=== PATIENT | female | born 1980 ===

== ENCOUNTER → 2017-01-16 | Day surgery (SDC) | payer BC ==
--- NOTE | ~2017-01-16 | OR ---
Unit #: [id number] #: [id number] Patient: AUBRIE AUSTIN [id number] [address] [address] [id number] MR#: [id number] NAME: AUBRIE AUSTIN ROOM: Date of Procedure: 01/16/2017 Admission Date: 01/16/2017 Surgeon: Camacho Lindquist Jr., M.D. : 1980 Attending Physician: Camacho Lindquist Jr., M.D. OPERATIVE REPORT INDICATIONS FOR PROCEDURE The patient is a 36-year-old female, who recently presented to the office complaining of intermittent mid epigastric and right upper quadrant abdominal pain. She has been worked up. Ultrasound revealed no obvious stones, but CCK HIDA scan revealed basically no contraction of the gallbladder, but probably no obstruction of the cystic duct. It was felt that the patient should have a laparoscopic cholecystectomy. She is brought to the operating room at this time for this procedure. She understands the procedure including the risks, including that of common duct injury, biliary leak, and bleeding, and intra-abdominal organ injury, and consents. PREOPERATIVE DIAGNOSIS Chronic cholecystitis. POSTOPERATIVE DIAGNOSIS Chronic cholecystitis, noting a chronically inflamed gallbladder. ANESTHESIA General with endotracheal intubation and 0.5% Marcaine with epinephrine locally in the port sites. PROCEDURE PERFORMED Laparoscopic cholecystectomy. DESCRIPTION OF PROCEDURE The patient was positioned in supine position. After being anesthetized and intubated, she was prepped and draped in routine fashion for laparoscopic cholecystectomy. A small supraumbilical incision made approximately 0.5 cm in length. This was carried down to the fascia. The umbilicus and fascia were lifted with a towel clip, and a Veress needle introduced into the abdomen. The abdomen was then inflated with CO2 gas. A 5-mm port was introduced into the abdomen followed by the camera. There was no evidence of any injury related to introduction of the port of the Veress needle. Brief intra-abdominal exploration was carried out. The patient was noted to have a slightly enlarged uterus, felt probably be normal and a chronically inflamed gallbladder. Two 5-mm ports were placed laterally and an 11-mm port just to the right of the upper midline. The gallbladder was lifted. Dissection was carried out in the triangle of Calot, cystic duct which was approximately 1 to 2 mm in diameter was isolated, hemoclipped x4, and divided. This was approximately a centimeter from its junction with the common duct. The common duct Unit #: [id number] #: [id number] Patient: AUBRIE AUSTIN appeared normal. Cystic artery was identified, hemoclipped x3, and divided. The gallbladder was then removed from its bed with the hook cautery using a current of 20 and after it was released, it was removed through the upper midline incision along with the grasping clamp and the port. The port was replaced. Subhepatic space checked. There was no evidence of any bleeding from the gallbladder bed. The clips on cystic duct and cystic artery were intact with no evidence of any leak or bleeding. At this point, the fascia in the larger port site was approximated using the neoClose technique and the CO2 was expressed from the abdomen. The port sites were injected with 0.5% Marcaine with epinephrine. There was no evidence of any bleeding from the port sites. The skin edges were approximated with stainless-steel skin clips and skin stapling device. Sterile dressings were applied externally. Estimated blood loss less than 50 mL. The patient received less than 1000 mL of crystalloid solution during the procedure. Sponges and instrument counts were correct x3. No drains used. No complications. The patient was taken to the recovery room with stable vital signs in satisfactory condition. Dictated by... Camacho Lindquist Jr., M.D. JMB/yanet TD: 01/16/2017 14:05 JOB #: [id number] CC: Lex Cline M.D. OPERATIVE REPORT Page 1 of 1 X Camacho Lindquist MD PROCEDURE OPERATIVE NOTE
[2017-01-16 12:35] LABS: ALBUMIN SERUM 4.9 g/dL (3.5-5.0); BILIRUBIN,TOTAL 0.9 mg/dL (0.2-2.0); CALCIUM SERUM 8.7 mg/dL (8.4-10.2); CREATININE SERUM 0.6 mg/dL (0.6-1.4); GLOM FILT RATE Estimated 118.1 mL/min (>60); POTASSIUM 3.9 mmol/L (3.5-5.1); PROTEIN TOTAL SERUM 8.2 g/dL (6.0-8.3)
== END | disposition home or self-care (01) ==
LOC: CSUR 11:08
PROVIDERS: Surgery
PROC: 0FT44ZZ Resection of Gallbladder, Percutaneous Endoscopic Approach (ICD-10-PCS; principal; 2017-01-16 12:30)
DX: K81.1 Chronic cholecystitis (principal); N85.2 Hypertrophy of uterus; Z87.440 Personal history of urinary (tract) infections; Z83.1 Family history of other infectious and parasitic diseases
CPT/HCPCS: 80053; 84703; 88304; J0330; J0690; J1170; J2250; J2405; J2710; J3010